=== PATIENT | female | born 1960 | race Caucasian/White ===

== ENCOUNTER 2016-10-23 21:52 | Observation (INO) ==
[2016-10-23] MEDS ORDERED: MORPHINE 2 MG/1 ML SYRINGE IV STA (23:22)
[2016-10-23] MEDS ORDERED: ONDANSETRON 4 MG/2 ML VIAL IV STA (23:22)
--- NOTE | 2016-10-23 23:26 | Emergency Department Note ---
IAditya Kasabria, am scribing for, and in the presence of, Claribel Portillo DO 23 :23. IBandar Debra, DO, personally performed the services described in this documentation, ascribed by Genny Burgess in my presence, and it is both accurate and complete 326 . Arrival - Arrival Chief Complaint: Chest Pain Stated Complaint: Chest pain, numbness in left side ED Nursing Triage Note: C/C shortness of breath, sharp, chest pain radiates into left arm and back. Numbness to left arm and leg. Headache. 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 Pt's chest pain is now resolved. She states she has a SUMMERS but denies fever, chills, vomiting, diarrhea, abdominal pain, back pain, and dysuria. Pt states she is nauseated. She takes BC daily. Pt had a hearth catheterization per Dr. Gonzalez [address] Mathur performed her stress test 4 years ago. She was prescribed Lisinopril for her HTN at [facility] but states she does not have any energy when throughout the day. She denies having diabetes. Her PCP is Dr. Ny. Onset (ago): hour(s) (2-4) Consistency: constant Severity: moderate Allergies/Adverse Reactions: Allergies Allergy/AdvReac Type Severity Reaction Status Date / Time Iodinated Contrast Media - Allergy ITCHING Verified 10/23/16 22:07 IV Dye Home Medications: Home Medications Medication Instructions Recorded Confirmed Type Citalopram Hydrobromide [Celexa] 20 mg PO DAILY 03/22/15 03/22/15 History Ranitidine Tab [Zantac Tab] 150 mg PO DAILY 03/22/15 03/22/15 History Atorvastatin [Lipitor] 40 mg PO BEDTIME #30 tablet 03/23/15 Rx Nitroglycerin Sl Tab [Nitrostat] 0.4 mg SL Q5M PRN #1 bottle 03/23/15 Rx traMADol TAB [Ultram] 50 mg PO Q8HR #30 tablet 03/23/15 Rx Ciprofloxacin Tab [Cipro Tab] 500 mg PO BID #14 tablet 06/25/16 Rx HYDROcodone/ACETAMIN 5-325 [[place] 1 tablet PO Q6H #14 tablet 06/25/16 Rx 5-325] Metronidazole [Flagyl ER Tab] 750 mg PO DAILY #7 tablet 06/25/16 Rx Ondansetron Odt Tab [Zofran Odt] 4 mg PO Q8H #10 tablet 06/25/16 Rx Tamsulosin [Flomax] 0.4 mg PO DAILY #30 capsule 06/25/16 Rx Review of System - Review of System 12 point system: reviewed and no additional remarkable complaints except as stated - Review of System Constitutional: Absent: chills, fever, weakness Eyes: Absent: vision change Head/Ears/Nose/Throat: Absent: earache, nasal drainage Respiratory: Absent: as per HPI Cardiovascular: Present: chest pain (now states it is resolved ). Absent: dyspnea on exertion, syncope Gastrointestinal: Present: nausea. Absent: abdominal pain, vomiting, diarrhea Genitourinary female: Absent: dysuria Musculoskeletal: Present: arm pain (radiating from the chest pain from earlier ) , leg pain. Absent: back pain, neck pain Skin: Absent: rash Neurological: Present: numbness (left leg and left arm ). Absent: headache, weakness, confusion, abnormal gait, vertigo Psychiatric: Absent: anxiety Endocrine: Absent: fatigue Allergic/Immunologic: Absent: facial swelling Medical,Surgical,& Family Hx - Medical History Cardio: History of: Hypertension Psychological: History of: Depression Neurology: History of: Migraine Genitourinary: History of: Kidney Stones Gastrointestinal: History of: Diverticulitis/ Diverticulosis, GERD - Surgical History Cardiac Surgeries: Sugical HX of: Cardiac Catheterization Abdominal Surgeries: Patient denies: Cholecystectomy Reproductive Surgeries: Surgical HX of;: Hysterectomy - Family History Family History: Reports;: Family Heart Disease (in both her parents) - Social History Smoking Status: Current every day smoker Frequency of Alcohol Use: None Type of Drug Use: None Exam Vital Signs: Vital Signs Temperature 98.1 F 10/23/16 22:01 Pulse Rate 70 10/23/16 22:01 Respiratory Rate 16 10/23/16 22:01 Blood Pressure 154/99 10/23/16 22:01 O2 Sat by Pulse Oximetry 96 10/23/16 22:01 - General General appearance: alert, in no apparent distress - Head Head exam: Present: atraumatic, normocephalic, normal inspection - Eye Eye exam: Present: normal appearance, PERRL, EOMI - ENT ENT exam: Present: normal exam, normal oropharynx, mucous membranes moist, TM's normal bilaterally, normal external ear exam - Neck Neck exam: Present: normal inspection, full ROM, trachea midline. Absent: tenderness - Chest Chest inspection: Present: normal inspection, symmetric chest wall rise. Absent : tenderness - Respiratory Respiratory exam: Present: normal lung sounds bilaterally - Cardiovascular Cardiovascular exam: Present: regular rate, normal rhythm, normal heart sounds - Abdominal Exam Abdominal exam: Present: soft, normal bowel sounds. Absent: distention, tenderness - Extremities Exam Extremities exam: Present: normal inspection, full ROM, normal capillary refill. Absent: tenderness, pedal edema, calf tenderness - Back Exam Back exam: Present: normal inspection, full ROM. Absent: tenderness - Neurological Exam Neurological exam: Present: alert, oriented X3, CN II-XII intact, normal gait, reflexes normal - Psychiatric Psychiatric exam: Present: normal affect, normal mood - Skin Skin exam: Present: warm, dry, intact, normal color. Absent: rash, diaphoresis , erythema Course Course Narrative: spoke with Dr Jefferson who will see pt Results - Labs CBC & BMP: 10/23/16 23:59 10/23/16 23:59 Lab Results: I have reviewed the patients labs - EKG EKG results: interpreted by SHAUN GARRETT - Diagnostic Findings Procedure: Chest x-ray: image reviewed by me (no acute path) Disposition Clinical Impression: Chest pain Case discussed with: patient, patient's family Disposition: Still a Patient Condition: Stable Time of Disposition: 01:31
[2016-10-23] MEDS ORDERED: MORPHINE 2 MG/1 ML SYRINGE ONE (23:48)
[2016-10-23] MEDS ORDERED: ONDANSETRON 4 MG/2 ML VIAL ONE (23:48)
[2016-10-24 00:06] LABS: Basophils % 0.5 % (0.0-0.8); Eosinophils # 0.2 10*3/uL (0.0-0.87); Eosinophils % 2.1 % (0.00-10.9); Hematocrit 40.6 VOL% (35.7-47.0); Hemoglobin 13.2 GM/DL (12.0-16.0); Immature Granulocytes % 0.2 %; Immature Granulocytes Absolute 0.02 #; Lymphocytes # 3.1 10*3/uL (1.4-4.0); Lymphocytes % 35.4 % (21.3-54.2); Mean Corpuscular HGB Conc 32.5 GM/DL (32-36); Mean Corpuscular Hemoglobin 31 PG (27-34); Mean Platelet Volume 12.5 FL (9.6-12.0); Monocytes # 0.9 10*3/uL (0.11-0.8); Neutrophils # 4.5 10*3/uL (1.4-7.4); Neutrophils % 51.8 % (38.7-73.9); Red Blood Count 4.23 MC/CUMM (3.8-5.5); Red Cell Distribution Width 13.6 % (9.3-17.3); White Blood Count 8.6 T/CUMM (4-12)
[2016-10-24 00:08] LABS: Platelet Count 75 T/CUMM (130-400)
[2016-10-24 00:18] LABS: PT Patient Result 10.4 SECS; Partial Thromboplastin Time 26.7 SECS (0-40)
[2016-10-24 00:51] LABS: Alanine Aminotransferase 15 U/L (13-56); Albumin 3.7 G/DL (3.4-5.0); Alkaline Phosphatase 110 U/L (45-117); Aspartate Amino Transferase 15 U/L (0-37); Bilirubin,Total < 0.39 MG/DL (0.2-1.0); Blood Urea Nitrogen 20 MG/DL (7-18); Calcium 9.2 MG/DL (8.5-10.1); Glucose 99 MG/DL (74-106); Potassium 4.1 MMOL/L (3.5-5.1); Sodium 143 MMOL/L (136-145); Total Protein 6.7 G/DL (6.4-8.3); Troponin I Only < 0.015 NG/ML (0.00-0.045)
[2016-10-24] MEDS ORDERED: MORPHINE 2 MG/1 ML SYRINGE ONE ×2 (01:30→01:31)
[2016-10-24] MEDS ORDERED: ONDANSETRON 4 MG/2 ML VIAL ONE (01:30)
[2016-10-24] MEDS ORDERED: MAGNESIUM SULF RIDER 2 GM in PREMIX 1 EACH IV PRN ×2 (01:32→11:10)
[2016-10-24] MEDS ORDERED: ONDANSETRON 4 MG/2 ML VIAL IV PRN (01:32)
[2016-10-24] MEDS ORDERED: MAGNESIUM SULF RIDER 4 GM in PREMIX 1 EACH IV PRN (01:32)
[2016-10-24] MEDS ORDERED: ASPIRIN 325 MG TABLET PO STA (01:42)
[2016-10-24] MEDS ORDERED: NITROGLYCERIN 2% OINT 1 INCH/GM PACK TOP STA (01:42)
[2016-10-24] MEDS ORDERED: ONDANSETRON 4 MG/2 ML VIAL IV STA (01:46)
[2016-10-24] MEDS ORDERED: MORPHINE 2 MG/1 ML SYRINGE IV STA (01:46)
[2016-10-24] MEDS ORDERED: ENOXAPARIN 40 MG/0.4 ML SYRINGE ONE (02:09)
[2016-10-24] MEDS ORDERED: ASPIRIN 325 MG TABLET ONE (02:09)
[2016-10-24] MEDS ORDERED: NITROGLYCERIN 2% OINT 1 INCH/GM PACK TOP ONE (02:09)
[2016-10-24] MEDS: ENOXAPARIN 40 MG/0.4 ML SYRINGE SUBCUT SCH (02:15)
[2016-10-24] MEDS ORDERED: INFLUENZA VIRUS VACCINE 0.5 ML SYRINGE IM ONE (03:10)
[2016-10-24 05:25] LABS: Basophils % 0.5 % (0.0-0.8); Eosinophils # 0.2 10*3/uL (0.0-0.87); Eosinophils % 2.6 % (0.00-10.9); Hematocrit 37.8 VOL% (35.7-47.0); Hemoglobin 12.6 GM/DL (12.0-16.0); Immature Granulocytes % 0.2 %; Immature Granulocytes Absolute 0.01 #; Lymphocytes # 3.1 10*3/uL (1.4-4.0); Lymphocytes % 46.2 % (21.3-54.2); Mean Corpuscular HGB Conc 33.3 GM/DL (32-36); Mean Corpuscular Hemoglobin 32 PG (27-34); Mean Corpuscular Volume 94.7 FL (87-102); Mean Platelet Volume 11.2 FL (9.6-12.0); Monocytes # 0.6 10*3/uL (0.11-0.8); Monocytes % 8.6 % (1.7-12.7); Neutrophils # 2.8 10*3/uL (1.4-7.4); Neutrophils % 41.9 % (38.7-73.9); Platelet Count 72 T/CUMM (130-400); Red Blood Count 3.99 MC/CUMM (3.8-5.5); Red Cell Distribution Width 13.6 % (9.3-17.3); White Blood Count 6.6 T/CUMM (4-12)
--- NOTE | 2016-10-24 05:34 | EKG Report ---
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
[2016-10-24 06:00] LABS: Troponin I Only < 0.015 NG/ML (0.00-0.045)
[2016-10-24 06:09] LABS: Risk Ratio 5.95; VLDL CHOLESTEROL 37.2 MG/DL
[2016-10-24 06:11] LABS: Troponin I Only < 0.015 NG/ML (0.00-0.045)
[2016-10-24 06:16] LABS: Alanine Aminotransferase 12 U/L (13-56); Albumin 3.4 G/DL (3.4-5.0); Alkaline Phosphatase 102 U/L (45-117); Aspartate Amino Transferase 11 U/L (0-37); Bilirubin,Total < 0.39 MG/DL (0.2-1.0); Blood Urea Nitrogen 18 MG/DL (7-18); Calcium 8.6 MG/DL (8.5-10.1); Glucose 94 MG/DL (74-106); Osmolality,Calculated 287.8 MOS/KG (273-304); Potassium 4.2 MMOL/L (3.5-5.1); Sodium 144 MMOL/L (136-145); Total Protein 6.5 G/DL (6.4-8.3)
[2016-10-24 06:59] LABS: Hypochromasia 1+; Platelet Estimate Decreased
[2016-10-24] MEDS: traMADol 50 MG TABLET PO PRN (07:43)
--- NOTE | 2016-10-24 08:29 | XRay Report ---
History: Shortness of breath Date: 10/23/2016 Study: Chest x-ray AP portable Comparison exam: March 22, 2015 There is mild cardiomegaly. The mediastinal contours are unchanged. The pulmonary vasculature is not engorged. The lungs are clear for shallow breath. There is no gross pleural effusion. The osseous structures are similar. Impression: No acute cardiopulmonary process. Mild cardiomegaly PROCEDURE INTERPRETED AT [facility] DEPARTMENT OF RADIOLOGY Final Report Signed by: Dr. Lucy Davila
--- NOTE | 2016-10-24 09:24 | EKG Report ---
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
--- NOTE | 2016-10-24 10:54 | Cardiology History & Physical ---
Assessment and Plan (1) Chest pain Status: Acute Assessment and plan: The patient's chest pains are very concerning for angina. She has multiple cardiac risk factors. Her EKG has new ST changes on a concerning for ischemia. All totally, think she would be best served by cardiac catheterization. I discussed this with her today. She understands the risks, alternatives, and potential benefits and wishes to proceed. We will schedule this for tomorrow and plan to use a right radial approach. Current Visit: Yes Qualifiers: Chest pain type: chest pain due to myocardial ischemia Ischemic chest pain type: unstable angina pectoris Qualified Code(s): I20.0 - Unstable angina (2) Hypertension Status: Chronic Assessment and plan: I'm going to monitor this and adjust her medicines accordingly. Current Visit: Yes Qualifiers: Hypertension type: essential hypertension Qualified Code(s): I10 - Essential (primary) hypertension (3) Tobacco abuse Status: Chronic Current Visit: Yes (4) Family history of coronary artery disease Status: Chronic Current Visit: Yes (5) Abnormal EKG Status: Acute Current Visit: Yes (6) Hyperlipidemia Status: Chronic Assessment and plan: Resume statin Current Visit: Yes History of Present Illness History of present illness: Ms. Hein is a 56 year old female with a history of hypertension, hypokalemia , and tobacco abuse. She came to the hospital with chest pain symptoms. She describes this as a pressure-like sensation over the left chest which radiated to her back or down her left arm. It seems to be worse with exertion and generally improves with rest. Symptoms have been going on for a few days but then worse recently. Symptoms are moderate in severity. She does have some dyspnea associated with this. She also has some nausea associated with this at times. She does not have any fever, chills, or cough. She has no vomiting, gastrointestinal blood loss, or dysphagia. She denies any orthopnea, PND, or peripheral edema. She does seem to have chronic daily headaches. At the time of seeing her she was asymptomatic. I reviewed her old chart. The patient had a heart catheterization about 10 years ago which was benign. She had a stress test for 5 years ago which was benign. Reviewing her EKG she has new T-wave inversion in the anterior precordial leads which is concerning for ischemia. Her laboratory tests are generally benign. Home Medications Medication Instructions Recorded Confirmed Type Citalopram Hydrobromide [Celexa] 20 mg PO DAILY 03/22/15 10/24/16 History Atorvastatin [Lipitor] 40 mg PO BEDTIME #30 tablet 03/23/15 10/24/16 Rx traMADol TAB [Ultram] 50 mg PO Q8HR #30 tablet 03/23/15 10/24/16 Rx Home Medications Medication Instructions Recorded Confirmed Type Citalopram Hydrobromide [Celexa] 20 mg PO DAILY 03/22/15 10/24/16 History Atorvastatin [Lipitor] 40 mg PO BEDTIME #30 tablet 03/23/15 10/24/16 Rx traMADol TAB [Ultram] 50 mg PO Q8HR #30 tablet 03/23/15 10/24/16 Rx Allergies Allergy/AdvReac Type Severity Reaction Status Date / Time Iodinated Contrast Media - Allergy ITCHING Verified 10/23/16 22:07 IV Dye 12 point system: reviewed and no additional remarkable complaints except as stated Medical,Surgical,& Family Hx - Medical History Cardio: History of: Hypertension Psychological: History of: Depression Neurology: History of: Migraine Genitourinary: History of: Kidney Stones Gastrointestinal: History of: Diverticulitis/ Diverticulosis, GERD - Surgical History Cardiac Surgeries: Sugical HX of: Cardiac Catheterization Abdominal Surgeries: Patient denies: Cholecystectomy Reproductive Surgeries: Surgical HX of;: Hysterectomy - Family History Family History: Reports;: Family Heart Disease (in both her parents) - Social History Smoking Status: Current every day smoker Frequency of Alcohol Use: None Type of Drug Use: None Cardiology Physical Exam - Constitutional Vitals: Vital Signs Temp Pulse Resp BP Pulse Ox 98.1 F 22 L 18 125/68 92 L 10/24/16 08:00 10/24/16 08:00 10/24/16 08:00 10/24/16 08:00 10/24/16 08:00 Intake and Output 10/23/16 10/24/16 10/24/16 23:59 07:59 15:59 Other: Weight 116.12 kg Patient Weight 10/24/16 23:59 Weight 116.12 kg Exam: General: Appears well developed, well nourished, no apparent distress HEENT: Normocephalic, atraumatic Neck: Supple Neck, Midline Trachea, No Bruit, No JVD Cardiac: Reg Rate and Rhythm, No Murmur, no gallop, no rub Lungs: Clear to auscultation, No Wheeze, Rales, Rhonchi Neuro: Cranial Nerve 2-12 Intact, Motor Function Grossly Intact Abdomen: Soft, Active Bowel Sounds, No Masses, No Pulsations/Bruits Skin: Normal color, no rash Extremities: No Clubbing, No Cyanosis, No Edema, Normal Upper Extr. Pulses Musculoskeletal: No acute abnormality noted Psychiatric: The patient does not appear to be anxious or depressed Result/EKG - Labs CBC & BMP: 10/24/16 04:47 10/24/16 04:47 Lab Results: I have reviewed the past 24 hour labs Labs: Laboratory Results - last 24 hr 10/24/16 10/24/16 10/24/16 04:47 04:47 04:47 WBC 6.6 RBC 3.99 Hgb 12.6 Hct 37.8 MCV 94.7 MCH 32 MCHC 33.3 RDW 13.6 Plt Count 72 L MPV 11.2 Neut % (Auto) 41.9 Lymph % (Auto) 46.2 [place] % (Auto) 8.6 Eos % (Auto) 2.6 Baso % (Auto) 0.5 Neut # (Auto) 2.8 Lymph # (Auto) 3.1 [place] # (Auto) 0.6 Eos # (Auto) 0.2 Baso # (Auto) 0.0 Immature Gran % 0.2 Nucleated RBC % 0.0 Immature Gran # 0.01 Nucleated RBCs # 0.00 Platelet Estimate Decreased Hypochromasia 1+ Morphology Comment Sodium 144 Potassium 4.2 Chloride 107 Carbon Dioxide 26 Anion Gap 15.2 H BUN 18 Creatinine 1.00 GFR Calculation 81 BUN/Creatinine Ratio 18.00 Glucose 94 Calculated Osmolality 287.8 Calcium 8.6 Total Bilirubin < 0.39 AST 11 ALT 12 L Alkaline Phosphatase 102 Total Creatine Kinase CK-MB (CK-2) Troponin I B-Natriuretic Peptide 9 Total Protein 6.5 Albumin 3.4 Globulin 3.1 Albumin/Globulin Ratio 1.0 L Triglycerides Cholesterol LDL Cholesterol VLDL Cholesterol HDL Cholesterol Heart Disease Risk Ratio TSH 3rd Generation 5.850 H 10/24/16 10/24/16 10/24/16 04:47 04:47 04:47 WBC RBC Hgb Hct MCV MCH MCHC RDW Plt Count MPV Neut % (Auto) Lymph % (Auto) [place] % (Auto) Eos % (Auto) Baso % (Auto) Neut # (Auto) Lymph # (Auto) [place] # (Auto) Eos # (Auto) Baso # (Auto) Immature Gran % Nucleated RBC % Immature Gran # Nucleated RBCs # Platelet Estimate Hypochromasia Morphology Comment Sodium Potassium Chloride Carbon Dioxide Anion Gap BUN Creatinine GFR Calculation BUN/Creatinine Ratio Glucose Calculated Osmolality Calcium Total Bilirubin AST ALT Alkaline Phosphatase Total Creatine Kinase 54 50 CK-MB (CK-2) 1.1 < 1.0 Troponin I < 0.015 < 0.015 B-Natriuretic Peptide Total Protein Albumin Globulin Albumin/Globulin Ratio Triglycerides 186 H Cholesterol 256 H LDL Cholesterol 183.0 VLDL Cholesterol 37.2 HDL Cholesterol 43 Heart Disease Risk Ratio 5.95 [facility] 3rd Generation 10/24/16 04:47 WBC RBC Hgb Hct MCV MCH MCHC RDW Plt Count MPV Neut % (Auto) Lymph % (Auto) [place] % (Auto) Eos % (Auto) Baso % (Auto) Neut # (Auto) Lymph # (Auto) [place] # (Auto) Eos # (Auto) Baso # (Auto) Immature Gran % Nucleated RBC % Immature Gran # Nucleated RBCs # Platelet Estimate Hypochromasia Morphology Comment Sodium Potassium Chloride Carbon Dioxide Anion Gap BUN Creatinine GFR Calculation BUN/Creatinine Ratio Glucose Calculated Osmolality Calcium Total Bilirubin AST ALT Alkaline Phosphatase Total Creatine Kinase 50 CK-MB (CK-2) < 1.0 Troponin I < 0.015 B-Natriuretic Peptide Total Protein Albumin Globulin Albumin/Globulin Ratio Triglycerides Cholesterol LDL Cholesterol VLDL Cholesterol HDL Cholesterol Heart Disease Risk Ratio [facility] 3rd Generation - EKG EKG results: interpreted by me
[2016-10-24] MEDS ORDERED: POTASSIUM CHLORIDE RIDER 10 MEQ in PREMIX 1 EACH IV PRN (11:10)
[2016-10-24] MEDS: MORPHINE 2 MG/1 ML SYRINGE IV PRN (11:43)
[2016-10-25] MEDS ORDERED: methylPREDNISolone SOD SUC 40 MG/1 ML VIAL IV ONE (00:01)
[2016-10-25] MEDS ORDERED: DIAZEPAM 5 MG TABLET PO ONE (07:00)
[2016-10-25] MEDS ORDERED: diphenhydrAMINE CAP 25 MG CAPSULE PO ONE (07:00)
--- NOTE | 2016-10-25 07:29 | EKG Report ---
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
[2016-10-25] MEDS ORDERED: FAMOTIDINE 20 MG TABLET PO ONE (08:00)
[2016-10-25] MEDS ORDERED: LIDOCAINE 1% 20 ML VIAL ONE (09:21)
[2016-10-25] MEDS ORDERED: NITROGLYCERIN DRIP 50 MG/250 ML BOTTLE IV ONE (09:21)
[2016-10-25] MEDS ORDERED: HYDROmorphone 2 MG/1 ML VIAL ONE (09:21)
[2016-10-25] MEDS ORDERED: MIDAZOLAM 2 MG/2 ML VIAL ONE (09:21)
[2016-10-25] MEDS ORDERED: VERAPAMIL 5 MG/2 ML VIAL ONE (09:21)
[2016-10-25] MEDS ORDERED: HEPARIN/NACL 0.9% 2 UNITS/ML 1,000 ML IV ONE (09:21)
[2016-10-25] MEDS ORDERED: methylPREDNISolone SOD SUC 125 MG/2 ML VIAL ONE (09:29)
[2016-10-25] MEDS ORDERED: ASPIRIN CHEW 81 MG TABLET PO ONE (09:40)
[2016-10-25] MEDS ORDERED: ENOXAPARIN 60 MG/0.6 ML SYRINGE ONE (09:40)
[2016-10-25] MEDS ORDERED: TICAGRELOR 90 MG TABLET ONE (09:55)
--- NOTE | 2016-10-25 10:29 | Cardiac Catheterization ---
Date of Procedure:: 10/25/16 Procedure: CLINICAL HISTORY: Please see the H&P. The patient has multiple cardiac risk factors and presented with symptoms concerning for unstable angina and abnormal EKG and is now undergoing cardiac catheterization for definitive coronary arteries and possible revascularization. PROCEDURES PERFORMED: 1. Right radial percutaneous arteriotomy 2. Left heart catheterization 3. Resting hemodynamics 4. Left ventriculography. 5. Coronary arteriography 6. Hemoband placement 7. Percutaneous coronary intervention to the inferior branch of the first obtuse marginal with a 2.75 x 12 mm Xience Alpine drug-eluting stent. DESCRIPTION OF PROCEDURE: After obtaining informed consent, the patient was taken to the rn labor and delivery, prepped and draped in the usual sterile manner. We accessed the right radial artery using modified Seldinger technique in the usual fashion. We placed a 6-[place]ian slim sheath without difficulty. We then used a Tig catheter to engage the left main coronary arteries to perform angiography in multiple orthogonal views. We then used a AR-1 catheter to engage the perform angiography of the right coronary artery. We then proceeded directly to percutaneous coronary intervention. We used an AL-1 interventional guide to engage left main coronary artery and passed PT Graphix wire beyond the area of stenosis in the inferior branch of the first obtuse marginal. We then performed primary stenting with a 2.75 x 12 mm Xience Alpine drug loading stent. An excellent angiographic result was achieved with no significant residual stenosis. There were no problems or complications during the procedure. We then used an angled pigtail catheter to perform a left heart catheterization with left ventriculogram and pressure measurement in the usual fashion. After removing the catheter, we placed a HemoBand and removed the sheath without difficulty. There were no problems during the case. HEMODYNAMICS: Please see the accompanying data sheet. CORONARIES: The left main coronary artery is a large-caliber vessel which bifurcates into the left anterior descending and left circumflex coronary arteries. The left main coronary artery is angiographically free of significant obstructive disease. The left circumflex coronary artery is a moderate to large vessel which gives off a bifurcating moderate size first obtuse marginal branch and a moderate- sized posterolateral system. There is a focal 70% stenosis in the inferior branch of the first obtuse marginal. The left anterior descending is a moderate to large size vessel which gives off a moderate-sized diagonal branch proximally. There are mild luminal irregularities in the left anterior descending coronary artery system but no significant focal obstruction is seen. The right coronary artery is a moderate size vessel which gives off a posterior descending artery. There is a trifurcation point in the mid portion of this vessel and there appears to be a 50% stenosis in this region. LEFT VENTRICULOGRAPHY: Left ventriculogram shows left ventricular ejection fraction of greater than 65%. IMPRESSION: 1. Successful percutaneous coronary intervention to the inferior branch of the first obtuse marginal with a 2.75 x 12 mm Xience Alpine drug-eluting stent. 2. Moderate disease at a trifurcation point in the mid right coronary artery as described above. We will manage this medically. 3. Normal left ventricle systolic function. PLAN: The patient was transferred back to her room for post-interventional monitoring and management. If she does well she should be able to go home tomorrow. We will follow-up with her in a week or so after that. Anesthesia: minimal conscious sedation Surgeon / Physician: Yony Harrington Estimated blood loss: minimal Condition: stable Disposition: floor - Medications / Follow-up
[2016-10-25] MEDS ORDERED: SODIUM CHLORIDE 0.9% 1,000 ML IV SCH (10:30)
--- NOTE | 2016-10-25 10:31 | Cardiology Progress Note ---
Assessment and Plan (1) Coronary artery disease Status: Acute Assessment and plan: Successful stenting of the inferior branch of the first obtuse marginal as described above. Current Visit: Yes (2) Chest pain Status: Acute Assessment and plan: Status post successful stenting of the inferior branch of the first obtuse marginal. Current Visit: Yes Qualifiers: Chest pain type: chest pain due to myocardial ischemia Ischemic chest pain type: unstable angina pectoris Qualified Code(s): I20.0 - Unstable angina (3) Hypertension Status: Chronic Assessment and plan: I added losartan. We can adjust as needed. Current Visit: Yes Qualifiers: Hypertension type: essential hypertension Qualified Code(s): I10 - Essential (primary) hypertension (4) Tobacco abuse Status: Chronic Current Visit: Yes (5) Family history of coronary artery disease Status: Chronic Current Visit: Yes (6) Abnormal EKG Status: Acute Current Visit: Yes (7) Hyperlipidemia Status: Chronic Assessment and plan: Resume statin Current Visit: Yes Cardiology - PN: Subj Interval history: The patient did well overnight. She had no further anginal symptoms. We performed cardiac catheterization this morning and found a significant lesion in the inferior branch of the first obtuse marginal. This was successfully stented. If she does well overnight and should be okay to send her home tomorrow. Current Medications Aspirin () 81 mg PO DAILY EDNA Citalopram Hydrobromide (Celexa) 20 mg PO DAILY [facility] Magnesium Sulfate 2 gm/ Premix 50 mls @ 25 mls/hr IV .PER PROTOCOL PRN; Protocol PRN Reason: Per Protocol Magnesium Sulfate 4 gm/ Premix 100 mls @ 25 mls/hr IV .PER PROTOCOL PRN; Protocol PRN Reason: Per Protocol Magnesium Sulfate 2 gm/ Premix 50 mls @ 25 mls/hr IV ONCE PRN PRN Reason: Magnesium less than 1.8 Potassium Chloride 10 meq/ (Premix) 100 mls @ 100 mls/hr IV Q1H PRN PRN Reason: Potassium less than 3.5 Sodium Chloride (Ns) 1,000 mls @ 125 mls/hr IV .Q8H EDNA Stop: 10/25/16 18:29 Losartan Potassium (Cozaar) 50 mg PO DAILY EDNA Morphine Sulfate () 2 mg IV Q4H PRN PRN Reason: Pain Severe (8-10) Last Admin: 10/24/16 11:43 Dose: 2 mg Ondansetron HCl (Zofran Inj) 4 mg IV Q4H PRN PRN Reason: Nausea Rosuvastatin Calcium (Crestor) 20 mg PO BEDTIME EDNA Ticagrelor (Brilinta) 90 mg PO BID EDNA Tramadol HCl (Ultram) 50 mg PO Q8H PRN PRN Reason: Headache Last Admin: 10/24/16 07:43 Dose: 50 mg Exam (Progress Note) - Constitutional Vitals: Period Temp Pulse Resp BP Sys/Alcazar Pulse Ox Last 24 Hr 96.5 F-98.5 F 52-61 18-20 132-143/73-87 90-95 Exam: General: Appears well developed, well nourished, no apparent distress HEENT: Normocephalic, atraumatic Neck: Supple Neck, Midline Trachea Cardiac: Reg Rate and Rhythm, No Murmur, no gallop, no rub Lungs: Clear to auscultation, No Wheeze, Rales, Rhonchi Neuro: Cranial Nerve 2-12 Intact, Motor Function Grossly Intact Skin: Normal color, no rash Extremities: No Clubbing, No Cyanosis, No Edema, Normal Upper Extr. Pulses Musculoskeletal: No acute abnormality noted Psychiatric: The patient does not appear to be anxious or depressed Result/EKG - Labs CBC & BMP: 10/24/16 04:47 10/24/16 04:47 Lab Results: I have reviewed the past 24 hour labs - EKG EKG results: interpreted by me
[2016-10-25] MEDS: LOSARTAN 50 MG TABLET PO SCH (11:37)
--- NOTE | 2016-10-25 12:31 | EKG Report ---
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
[2016-10-25] MEDS: ENOXAPARIN 40 MG/0.4 ML SYRINGE SUBCUT SCH (14:29)
--- NOTE | 2016-10-25 14:57 | Discharge Summary ---
<Piper Beyer E - Last Filed: 10/26/16 11:06> Hospital Course - Hospital Course Hospital Course: Ms. Hein, 56F, was admitted over the weekend for chest pain concerning for angina. Patient underwent elective cardiac catheterization performed by Dr. Harrington October 25, 2016 with the following noted: IMPRESSION: 1. Successful percutaneous coronary intervention to the inferior branch of the first obtuse marginal with a 2.75 x 12 mm Xience Alpine drug-eluting stent. 2. Moderate disease at a trifurcation point in the mid right coronary artery as described above. We will manage this medically. 3. Normal left ventricle systolic function. She tolerated the procedure well without complication was returned to the telemetry unit in stable condition. Overnight, she has done well without chest pain, heaviness or tightness. Labs are stable. She has been ambulating without difficulty. Having felt him at maximal medical therapy, patient is being discharged home in stable condition. Patient is being given a one-week follow-up appoint with Dr. Yony Harrington. At that visit the following will be obtained, BMP, magnesium, CBC and EKG Discharge medications include the following: Aspirin 81 mg orally daily Brilinta 90 mg orally twice daily without fail. Patient is being given a prescription card at discharge Losartan 50 mm orally daily Crestor 20 mg orally each evening Patient's heart rate will not allow for introduction of a beta-bello - Time spent with patient Time with patient DS: Greater than 30 minutes Time spent discussing smoking cessation with patient: 3 to 10 minutes Diagnosis - Discharge Diagnosis (1) Abnormal EKG Status: Chronic (2) Chest pain Status: Resolved (3) Coronary artery disease Status: Chronic (4) Hyperlipidemia Status: Chronic (5) Hypertension Status: Chronic (6) Tobacco abuse Status: Chronic Specialty Discharge - Follow Up or Referrals Follow up with: Yony Harrington MD [Physician] - 1 Week ( October 29, 2016 at 10:20 for labwork BMP, Magnesium, CBC. November 03, 2016 at 10:20AM Appointment with EKG) Discharge Plan - Discharge Data Disposition: Disch To Home/Self Care Condition at Discharge: Stable Discharge Diet: heart healthy Activity: other (Post cath expectations) Hygiene: other (Post cath expectations) Weight Bearing at Discharge: other (Post cath expectations) Driving: other (Post cath expectations) Contact your physician if you experience:: fever over 101, Difficulty voiding, Redness or swelling, Nausea/Vomiting, Shortness of breath, Bleeding, pain uncontrolled by pain medications - Discharge Medications New Losartan [Cozaar] 50 mg PO DAILY #30 tablet Ticagrelor [Brilinta] 90 mg PO BID #60 tablet Aspirin EC Tab 81 mg PO DAILY #30 tablet Continue Citalopram Hydrobromide [Celexa] 20 mg PO DAILY Atorvastatin [Lipitor] 40 mg PO BEDTIME #30 tablet traMADol TAB [Ultram] 50 mg PO Q8HR #30 tablet - Follow Up or Referral Follow Up: Yony Harrington MD [Physician] - 1 Week ( October 29, 2016 at 10:20 for labwork BMP, Magnesium, CBC. November 03, 2016 at 10:20AM Appointment with EKG) - Forms/Instructions Instructions: Coronary Artery Disease (DC), Left Heart Catheterization (DC) Exam - Constitutional Vitals: Period Temp Pulse Resp BP Sys/Alcazar Pulse Ox Last 24 Hr 97.3 F-98.7 F 56-80 18-20 109-134/62-73 94-96 Exam: General: [Appears well with no apparent distress.] [Pleasant and cooperative. ] [Appears comfortable.] HEENT: [PERRL, normocephalic, atraumatic. Mucous membranes moist. No jaundice noted. Conjunctiva moist and clear, sclerae anicteric] Neck: No JVD/HJR, no thyromegaly or lymphadenopathy noted. No carotid bruit appreciated Cardiac: [Regular rate and rhythm.] [No murmur rub or gallop.] Lungs: [Clear to auscultation without accessory muscle use to assist the respiratory pattern.] Not requiring oxygen. Abdomen: Soft, bowel sounds normoactive. Nontender and nondistended. No abdominal bruit or thrill noted. No masses noted. Musculoskeletal: No fluid collection. Decreased range of motion is noted. Extremities: Right radial access site soft and free of hematoma or bruit. No clubbing, cyanosis noted. [ No edema noted.] Upper extremity pulses 2+. Lower extremity pulses 2+. Capillary refill less than 3 seconds. Skin: No unusual lesions or rashes. No skin breakdown appreciated. Neuro: Awake, alert and oriented 3. Moves all extremities well without hemiparesis or paralysis. No essential tremor is appreciated. Discharge Results Labs on day of discharge: Labs from last 24 hours 10/26/16 10/26/16 03:53 03:53 WBC 14.6 H D RBC 3.77 L Hgb 12.2 Hct 36.1 MCV 95.8 MCH 32 MCHC 33.8 RDW 13.4 Plt Count 86 L MPV 11.2 Neut % (Auto) 77.0 H Lymph % (Auto) 13.0 L Sebastian % (Auto) 9.5 Eos % (Auto) 0.0 Baso % (Auto) 0.1 Neut # (Auto) 11.2 H Lymph # (Auto) 1.9 Sebastian # (Auto) 1.4 H Eos # (Auto) 0.0 Baso # (Auto) 0.0 Immature Gran % 0.4 Nucleated RBC % 0.0 Immature Gran # 0.06 Nucleated RBCs # 0.00 Platelet Estimate Decreased Hypochromasia 1+ Ovalocytes Slight Morphology Comment Total Creatine Kinase 47 CK-MB (CK-2) 1.4 Troponin I 0.019 - Imaging and Cardiology Cardiology Procedure: report reviewed by me Procedure: Chest x-ray: report reviewed by me DS: Provider Date of admission: 10/24/16 01:32 Primary care physician: . No PCP Attending physician on admission: Adrian Moreno Discharging clinician: Piper Beyer NP Expected date of discharge: 10/26/16 <Med Hollingsworth - Last Filed: 10/26/16 12:40> Diagnosis - Discharge Diagnosis (1) Headache Status: Acute (2) Back pain Status: Acute
[2016-10-25] MEDS: traMADol 50 MG TABLET PO PRN (20:22)
[2016-10-25] MEDS: TICAGRELOR 90 MG TABLET PO SCH (20:29)
[2016-10-25] MEDS ORDERED: ROSUVASTATIN 20 MG TABLET PO SCH (21:00)
[2016-10-25] MEDS: MORPHINE 2 MG/1 ML SYRINGE IV PRN (21:44)
[2016-10-26 04:09] LABS: Basophils % 0.1 % (0.0-0.8); Hematocrit 36.1 VOL% (35.7-47.0); Hemoglobin 12.2 GM/DL (12.0-16.0); Immature Granulocytes % 0.4 %; Immature Granulocytes Absolute 0.06 #; Lymphocytes # 1.9 10*3/uL (1.4-4.0); Mean Corpuscular HGB Conc 33.8 GM/DL (32-36); Mean Corpuscular Hemoglobin 32 PG (27-34); Mean Corpuscular Volume 95.8 FL (87-102); Mean Platelet Volume 11.2 FL (9.6-12.0); Monocytes # 1.4 10*3/uL (0.11-0.8); Monocytes % 9.5 % (1.7-12.7); Neutrophils # 11.2 10*3/uL (1.4-7.4); Platelet Count 86 T/CUMM (130-400); Red Blood Count 3.77 MC/CUMM (3.8-5.5); Red Cell Distribution Width 13.4 % (9.3-17.3); White Blood Count 14.6 T/CUMM (4-12)
[2016-10-26 04:45] LABS: Troponin I Only 0.019 NG/ML (0.00-0.045)
[2016-10-26 04:54] LABS: Hypochromasia 1+
[2016-10-26 04:55] LABS: Ovalocytes Slight; Platelet Estimate Decreased
[2016-10-26] MEDS: MORPHINE 2 MG/1 ML SYRINGE IV PRN (05:51)
--- NOTE | 2016-10-26 07:17 | EKG Report ---
Stationary ECG Study [facility] Test Date: 10/26/2016 7:16:51 AM Pat Name: AMIE JOHNSON Department: Room: 276 Gender: F Customer Support Associate: ADIEL : 1960 Requested by: Mariann Bhakta Order Number: [id number] Reading MD: NICOLE LUNA Intervals [place] Rate: 54 P: 48 CA: 151 QRS: 21 QRSD: 113 T: -5 QT: 420 QTc: 407 Interpretive Statements SINUS BRADYCARDIA INCOMPLETE RIGHT BUNDLE BRANCH BLOCK MODERATE T-WAVE ABNORMALITY, CONSIDER ANTERIOR ISCHEMIA Electronically Signed On 10-27-16 20:45:02 CDT by NICOLE LUNA [email or web address]
[2016-10-26] MEDS: TICAGRELOR 90 MG TABLET PO SCH (08:08)
[2016-10-26] MEDS: LOSARTAN 50 MG TABLET PO SCH (08:08)
[2016-10-26] MEDS ORDERED: CITALOPRAM 20 MG TABLET PO SCH (09:00)
[2016-10-26] MEDS ORDERED: ASPIRIN EC 81 MG TABLET PO SCH (09:00)
[2016-10-26 11:36] VITALS: BP 124/63
== END 2016-10-26 12:45 | disposition home or self-care (01) ==
LOC: N.ED 21:52 → N.EDINP 21:52 → N.TELES 10-24 02:30
PROVIDERS: ADMIT Internal Medicine Cardiovascular Disease; ATTEND Internal Medicine Cardiovascular Disease
PROC: CLCCHCL (ICD-10-PCS; 2016-10-25 09:45)

== ENCOUNTER 2017-12-03 20:01 | Inpatient (IN) ==
[2017-12-03] MEDS ORDERED: ENOXAPARIN 100 MG/ML SYRINGE SUBCUT STA (21:27)
[2017-12-03] MEDS ORDERED: NITROGLYCERIN 2% OINT 1 INCH/GM PACK TOP STA (21:27)
[2017-12-03] MEDS ORDERED: ONDANSETRON 4 MG/2 ML VIAL IV STA ×2 (21:27→22:21)
[2017-12-03 21:39] LABS: Basophils # 0.1 10*3/uL (0.0-0.2); Basophils % 0.8 % (0.0-0.8); Eosinophils # 0.3 10*3/uL (0.0-0.87); Hematocrit 39.1 VOL% (35.7-47.0); Hemoglobin 12.8 GM/DL (12.0-16.0); Immature Granulocytes % 0.3 %; Immature Granulocytes Absolute 0.02 #; Lymphocytes # 2.8 10*3/uL (1.4-4.0); Lymphocytes % 43.1 % (21.3-54.2); Mean Corpuscular HGB Conc 32.7 GM/DL (32-36); Mean Corpuscular Hemoglobin 32 PG (27-34); Mean Corpuscular Volume 97.8 FL (87-102); Monocytes # 0.7 10*3/uL (0.11-0.8); Monocytes % 10.3 % (1.7-12.7); Neutrophils # 2.7 10*3/uL (1.4-7.4); Neutrophils % 41.5 % (38.7-73.9); Platelet Count 44 T/CUMM (130-400); Red Cell Distribution Width 12.8 % (9.3-17.3); White Blood Count 6.5 T/CUMM (4-12)
[2017-12-03 21:46] LABS: Alanine Aminotransferase 15 U/L (13-56); Albumin 3.7 G/DL (3.4-5.0); Alkaline Phosphatase 95 U/L (45-117); Aspartate Amino Transferase 16 U/L (0-37); Bilirubin,Total < 0.39 MG/DL (0.2-1.0); Blood Urea Nitrogen 25 MG/DL (7-18); Calcium 8.7 MG/DL (8.5-10.1); Glucose 96 MG/DL (74-106); Osmolality,Calculated 282.4 MOS/KG (273-304); Potassium 3.6 MMOL/L (3.5-5.1); Sodium 140 MMOL/L (136-145); Total Protein 7.2 G/DL (6.4-8.3)
[2017-12-03] MEDS ORDERED: ENOXAPARIN 120 MG/0.8 ML SYRINGE SUBCUT ONE (21:47)
[2017-12-03] MEDS ORDERED: ONDANSETRON 4 MG/2 ML VIAL ONE (21:48)
[2017-12-03] MEDS ORDERED: NITROGLYCERIN 2% OINT 1 INCH/GM PACK TOP ONE (21:48)
[2017-12-03 23:10] LABS: Basophils # 0.1 10*3/uL (0.0-0.2); Basophils % 0.8 % (0.0-0.8); Eosinophils # 0.3 10*3/uL (0.0-0.87); Eosinophils % 3.3 % (0.00-10.9); Hematocrit 39.1 VOL% (35.7-47.0); Hemoglobin 12.9 GM/DL (12.0-16.0); Immature Granulocytes % 0.4 %; Immature Granulocytes Absolute 0.03 #; Lymphocytes # 3.1 10*3/uL (1.4-4.0); Lymphocytes % 40.8 % (21.3-54.2); Mean Corpuscular Hemoglobin 32 PG (27-34); Mean Corpuscular Volume 97.8 FL (87-102); Mean Platelet Volume 9.3 FL (9.6-12.0); Monocytes # 0.7 10*3/uL (0.11-0.8); Neutrophils # 3.4 10*3/uL (1.4-7.4); Neutrophils % 45.7 % (38.7-73.9); Red Cell Distribution Width 12.9 % (9.3-17.3); White Blood Count 7.5 T/CUMM (4-12)
[2017-12-03 23:12] LABS: Platelet Count 208 T/CUMM (130-400)
[2017-12-03] MEDS ORDERED: ONDANSETRON 4 MG/2 ML VIAL IV PRN (23:28)
[2017-12-04] MEDS: DEXTROSE 5% NACL 0.9% 1,000 ML IV SCH ×3 (01:35→16:37)
[2017-12-04] MEDS: KETOROLAC 15 MG/1 ML VIAL IV SCH ×4 (01:35→18:16)
[2017-12-04] MEDS ORDERED: traMADol 50 MG TABLET PO PRN (01:43)
[2017-12-04 05:18] LABS: Basophils % 0.6 % (0.0-0.8); Eosinophils # 0.3 10*3/uL (0.0-0.87); Eosinophils % 4.3 % (0.00-10.9); Hematocrit 34.5 VOL% (35.7-47.0); Immature Granulocytes % 0.1 %; Immature Granulocytes Absolute 0.01 #; Lymphocytes % 44.8 % (21.3-54.2); Mean Corpuscular HGB Conc 34.8 GM/DL (32-36); Mean Corpuscular Hemoglobin 33 PG (27-34); Mean Platelet Volume 9.5 FL (9.6-12.0); Monocytes # 0.6 10*3/uL (0.11-0.8); Neutrophils # 2.8 10*3/uL (1.4-7.4); Neutrophils % 41.2 % (38.7-73.9); Red Blood Count 3.63 MC/CUMM (3.8-5.5); Red Cell Distribution Width 12.9 % (9.3-17.3); White Blood Count 6.8 T/CUMM (4-12)
[2017-12-04 05:21] LABS: Platelet Count 193 T/CUMM (130-400)
[2017-12-04 06:01] LABS: Albumin 3.5 G/DL (3.4-5.0); Bilirubin,Total 0.4 MG/DL (0.2-1.0); Calcium 8.3 MG/DL (8.5-10.1); Osmolality,Calculated 286.1 MOS/KG (273-304); Potassium 3.7 MMOL/L (3.5-5.1); Total Protein 6.4 G/DL (6.4-8.3)
[2017-12-04] MEDS: LOSARTAN 50 MG TABLET PO SCH (08:46)
[2017-12-04] MEDS: CITALOPRAM 40 MG TABLET PO SCH (08:46)
[2017-12-04] MEDS: CLOPIDOGREL 75 MG TABLET PO SCH (08:46)
[2017-12-04] MEDS: NORTRIPTYLINE 25 MG CAPSULE PO SCH (08:46)
[2017-12-04] MEDS: TOPIRAMATE 25 MG TABLET PO SCH (08:46)
[2017-12-04] MEDS ORDERED: ALBUTEROL/IPRATROPIUM 3 ML NEB RESP TX PRN (12:37)
[2017-12-04] MEDS ORDERED: POTASSIUM CHLORIDE RIDER 10 MEQ in PREMIX 1 EACH IV PRN (13:07)
[2017-12-04] MEDS ORDERED: DIAZEPAM 5 MG TABLET PO ONE (13:07)
[2017-12-04] MEDS ORDERED: diphenhydrAMINE CAP 25 MG CAPSULE PO ONE (13:07)
[2017-12-04] MEDS ORDERED: MAGNESIUM SULF RIDER 2 GM in PREMIX 1 EACH IV PRN (13:07)
[2017-12-04] MEDS: ALBUTEROL/IPRATROPIUM 3 ML NEB RESP TX SCH ×2 (13:41→21:18)
[2017-12-04] MEDS: FLUTICASONE 50 MCG NASAL SPRAY 16 GM BOTTLE BOTH NARES SCH (14:05)
[2017-12-04] MEDS: cefTRIAXone 500 MG in SYRINGE 1 EACH IV SCH (14:15)
[2017-12-04] MEDS: ASPIRIN CHEW 81 MG TABLET PO SCH (14:15)
[2017-12-04] MEDS: predniSONE 20 MG TABLET PO SCH (20:59)
[2017-12-05] MEDS: KETOROLAC 15 MG/1 ML VIAL IV SCH ×3 (00:19→11:55)
[2017-12-05] MEDS: DEXTROSE 5% NACL 0.9% 1,000 ML IV SCH ×2 (02:25→10:37)
[2017-12-05] MEDS: ALBUTEROL/IPRATROPIUM 3 ML NEB RESP TX SCH ×3 (03:08→14:05)
[2017-12-05 05:47] LABS: Calcium 8.1 MG/DL (8.5-10.1); Potassium 4.4 MMOL/L (3.5-5.1)
[2017-12-05] MEDS ORDERED: diphenhydrAMINE CAP 50 MG CAPSULE ONE (08:22)
[2017-12-05] MEDS ORDERED: DIAZEPAM 5 MG TABLET ONE (08:23)
[2017-12-05] MEDS ORDERED: HEPARIN/NACL 0.9% 2 UNITS/ML 1,000 ML IV ONE (08:25)
[2017-12-05] MEDS: ASPIRIN CHEW 81 MG TABLET PO SCH (08:26)
[2017-12-05] MEDS: CLOPIDOGREL 75 MG TABLET PO SCH (08:26)
[2017-12-05] MEDS: LOSARTAN 50 MG TABLET PO SCH (08:26)
[2017-12-05] MEDS: predniSONE 20 MG TABLET PO SCH (08:28)
[2017-12-05] MEDS ORDERED: VERAPAMIL 5 MG/2 ML VIAL ONE (08:36)
[2017-12-05] MEDS ORDERED: MIDAZOLAM 2 MG/2 ML VIAL ONE (08:36)
[2017-12-05] MEDS ORDERED: HYDROmorphone 2 MG/1 ML VIAL ONE (08:36)
[2017-12-05] MEDS ORDERED: NITROGLYCERIN DRIP 50 MG/250 ML BOTTLE IV ONE (08:36)
[2017-12-05] MEDS ORDERED: ENOXAPARIN 30 MG/0.3 ML SYRINGE ONE (09:02)
[2017-12-05] MEDS ORDERED: SODIUM CHLORIDE 0.9% 1,000 ML IV SCH (09:30)
[2017-12-05] MEDS: FLUTICASONE 50 MCG NASAL SPRAY 16 GM BOTTLE BOTH NARES SCH (10:53)
[2017-12-05] MEDS: TOPIRAMATE 25 MG TABLET PO SCH (11:03)
[2017-12-05] MEDS: CITALOPRAM 40 MG TABLET PO SCH (11:03)
[2017-12-05] MEDS: NORTRIPTYLINE 25 MG CAPSULE PO SCH (11:03)
[2017-12-05] MEDS: cefTRIAXone 500 MG in SYRINGE 1 EACH IV SCH (13:41)
[2017-12-05 15:45] VITALS: BP 128/61
[2017-12-05] MEDS ORDERED: CITALOPRAM 40 MG TABLET PO SCH (21:00)
[2017-12-05] MEDS ORDERED: TOPIRAMATE 25 MG TABLET PO SCH (21:00)
[2017-12-05] MEDS ORDERED: NORTRIPTYLINE 25 MG CAPSULE PO SCH (21:00)
== END 2017-12-05 15:56 | disposition home or self-care (01) | DRG 287 ==
LOC: EDUNIT# → EDBD → N.ED 20:01 → N.EDINP 20:01 → N.2E 23:14 → N.EDINP 23:28 → N.TELEN 12-04 00:15
PROVIDERS: ADMIT Family Medicine; ATTEND Family Medicine
PROC: CLCCHCL (ICD-10-PCS; 2017-12-05 09:15)